=== PATIENT | female | born 2000 | race Caucasian/White ===

== ENCOUNTER → 2020-11-16 | Outpatient (REF) | payer OTHER | LOC: M WUC 09:35 | PROVIDERS: ATTEND Physician Assistant | DX: J06.9 Acute upper respiratory infection, unspecified (principal) ==

== ENCOUNTER 2021-07-25 10:35 | Emergency (ER) | payer OTHER ==
[~2021-07-25] VITALS: Ht 152.4 cm; Wt 81.8 kg
[2021-07-25] MEDS ORDERED: METH54TA2 (11:09)
[2021-07-25] MEDS ORDERED: PRENTAB53 (11:09)
[2021-07-25] MEDS ORDERED: LORA-674 (11:09)
[2021-07-25 12:05] LABS: BASO % 0.2 % (0.0-1.0); EOS # 0.1 10^3/uL (0.0-0.5); HEMATOCRIT 39.8 % (36.0-47.0); HEMOGLOBIN 13.5 g/dl (12.0-15.5); LYMPH # 3.2 10^3/uL (1.5-5.0); LYMPH % 25.6 % (24.0-44.0); MEAN CORPUSCULAR HEMOGLOBIN 30.7 pg (27.0-33.0); MEAN CORPUSCULAR HGB CONC 33.9 g/dl (32.0-36.5); MEAN CORPUSCULAR VOLUME 90.5 fl (80.0-96.0); MONO # 0.9 10^3/uL (0.0-0.8); MONO % 7.2 % (2.0-8.0); NEUTROPHILS # 8.2 10^3/uL (1.5-8.5); NEUTROPHILS % 65.4 % (36.0-66.0); PLATELET COUNT, AUTOMATED 306 10^3/uL (150-450); WHITE BLOOD COUNT 12.5 10^3/uL (4.0-10.0)
[2021-07-25 12:55] LABS: BLOOD UREA NITROGEN 8 MG/DL (7-18); CALCIUM LEVEL 9.1 MG/DL (8.5-10.1); CARBON DIOXIDE LEVEL 26 MEQ/L (21-32); CHLORIDE LEVEL 107 MEQ/L (98-107); CREATININE FOR GFR 0.61 MG/DL (0.55-1.30); GLOMERULAR FILTRATION RATE > 60.0 (>60); GLUCOSE, FASTING 105 MG/DL (70-100); HCG, SERUM QUANTITATIVE 90573 MIU/ML; POTASSIUM SERUM 3.7 MEQ/L (3.5-5.1); SODIUM LEVEL 138 MEQ/L (136-145)
[2021-07-25 14:57] VITALS: BP 134/92
[2021-07-25 15:54] LABS: GC DNA AMPLIFICATION NEGATIVE (NEGATIVE)
== END 2021-07-25 14:59 | disposition home or self-care (01) ==
LOC: M ED 10:35
DX: O26.851 Spotting complicating pregnancy, first trimester (principal); O20.8 Other hemorrhage in early pregnancy; O34.81 Maternal care for other abnormalities of pelvic organs, first trimester; O26.891 Other specified pregnancy related conditions, first trimester; R10.9 Unspecified abdominal pain; Z3A.01 Less than 8 weeks gestation of pregnancy; Z79.899 Other long term (current) drug therapy

== ENCOUNTER 2022-01-19 12:20 | Outpatient (CLI) | payer OTHER ==
[~2022-01-19] VITALS: Ht 152.4 cm; Wt 94.3 kg
[~2022-01-19 12:20] MED LIST: LORA-674; METH54TA2; PRENTAB53
[2022-01-19] MEDS ORDERED: TUMS500C PO (12:48)
[2022-01-19] MEDS ORDERED: HOME MED LIST COMPLETE! XX SCH (12:50)
[2022-01-19 12:56] VITALS: BP 133/74
[2022-01-19] MEDS ORDERED: FLUCONAZOLE 50MG TABLET PO ONE (14:00)
[2022-01-19 14:52] VITALS: BP 175/75
[2022-01-19 15:15] VITALS: BP 132/66
== END 2022-01-19 16:30 | disposition home or self-care (01) ==
LOC: M LDO 12:20
PROVIDERS: ATTEND Advanced Practice Midwife
DX: O23.593 Infection of other part of genital tract in pregnancy, third trimester (principal); Z3A.33 33 weeks gestation of pregnancy; O24.414 Gestational diabetes mellitus in pregnancy, insulin controlled
CPT/HCPCS: 59025; G0378; G0463

== ENCOUNTER 2022-02-15 19:25 | Outpatient (CLI) | payer OTHER ==
[~2022-02-15] VITALS: Ht 152.4 cm; Wt 94.5 kg
[~2022-02-15 19:25] MED LIST changes: +TUMS500C PO
[2022-02-15 19:55] VITALS: BP 116/71
== END 2022-02-15 21:00 | disposition home or self-care (01) ==
LOC: M LDO 19:25
PROVIDERS: ATTEND Obstetrics & Gynecology
DX: O60.03 Preterm labor without delivery, third trimester (principal); Z3A.36 36 weeks gestation of pregnancy
CPT/HCPCS: 59025; G0378; G0463

== ENCOUNTER 2022-02-18 17:06 | Outpatient (CLI) | payer OTHER ==
[~2022-02-18] VITALS: Ht 152.4 cm; Wt 95.1 kg
[2022-02-18 17:41] VITALS: BP 112/56
[2022-02-18] MEDS ORDERED: NOVO1INJ18 SC (17:52)
[2022-02-18 17:57] VITALS: BP 116/69
== END 2022-02-18 18:57 | disposition home or self-care (01) ==
LOC: M LDO 17:06
PROVIDERS: ATTEND Obstetrics & Gynecology
DX: O36.8130 Decreased fetal movements, third trimester, not applicable or unspecified (principal); Z3A.37 37 weeks gestation of pregnancy; O24.424 Gestational diabetes mellitus in childbirth, insulin controlled; O36.63X0 Maternal care for excessive fetal growth, third trimester, not applicable or unspecified
CPT/HCPCS: 59025; G0463

== ENCOUNTER 2022-02-20 17:35 | Outpatient (CLI) | payer OTHER ==
[~2022-02-20] VITALS: Ht 152.4 cm; Wt 94.8 kg
[~2022-02-20 17:35] MED LIST changes: +NOVO1INJ18 SC
[2022-02-20 18:02] VITALS: BP 123/79
== END 2022-02-20 18:45 | disposition home or self-care (01) ==
LOC: M LDO 17:35
PROVIDERS: ATTEND Obstetrics & Gynecology
DX: O47.1 False labor at or after 37 completed weeks of gestation (principal); Z3A.37 37 weeks gestation of pregnancy; O24.414 Gestational diabetes mellitus in pregnancy, insulin controlled
CPT/HCPCS: 59025; G0378; G0463

== ENCOUNTER 2022-02-25 21:22 | Outpatient (CLI) | payer OTHER ==
[~2022-02-25] VITALS: Ht 152.4 cm; Wt 94.9 kg
[2022-02-25] MEDS ORDERED: HOME MED LIST COMPLETE! XX SCH (21:35)
[2022-02-25 21:40] VITALS: BP 114/70
[2022-02-25 22:49] VITALS: BP 123/74
[2022-02-26 00:11] VITALS: BP 104/55
== END 2022-02-26 00:18 | disposition home or self-care (01) ==
LOC: M LDO 21:22
PROVIDERS: ATTEND Obstetrics & Gynecology
DX: O47.1 False labor at or after 37 completed weeks of gestation (principal); Z3A.38 38 weeks gestation of pregnancy; O24.414 Gestational diabetes mellitus in pregnancy, insulin controlled
CPT/HCPCS: 59025; G0463

== ENCOUNTER 2022-03-03 04:56 | Inpatient (IN) | payer OTHER ==
[2022-03-03] VITALS (8 sets, daily range): BP systolic 98–124; BP diastolic 56–77
[~2022-03-03] VITALS: Ht 152.4 cm; Wt 96.3 kg
[~2022-03-03 04:56] MED LIST changes: +INSU100I12 SC; -LORA-674; +LORA-674 PO; -PRENTAB53; +PRENTAB53 PO
[2022-03-03] MEDS ORDERED: HOME MED LIST COMPLETE! XX SCH (05:25)
[2022-03-03] MEDS ORDERED: LR 1,000 ML IV SCH (05:45)
[2022-03-03] MEDS ORDERED: LACTATED RINGER'S 1000 ML IV ONE (05:45)
[2022-03-03] MEDS ORDERED: ceFAZolin SOD 2 GM in IV 1 EA IV ONE (05:50)
[2022-03-03 05:56] LABS: HEMATOCRIT 39.2 % (36.0-47.0); HEMOGLOBIN 12.8 g/dl (12.0-15.5); MEAN CORPUSCULAR HEMOGLOBIN 28.6 pg (27.0-33.0); MEAN CORPUSCULAR HGB CONC 32.7 g/dl (32.0-36.5); MEAN CORPUSCULAR VOLUME 87.5 fl (80.0-96.0); PLATELET COUNT, AUTOMATED 240 10^3/uL (150-450); RED BLOOD COUNT 4.48 10^6/uL (4.00-5.40)
[2022-03-03] MEDS ORDERED: OXYTOCIN INJ 10UNITS/ML 1ML VIAL As Ordered ONE (07:16)
[2022-03-03] MEDS ORDERED: ONDANSETRON 4MG 2ML VIAL As Ordered ONE (07:16)
[2022-03-03] MEDS ORDERED: KETOROLAC 60MG 2ML VIAL As Ordered ONE (07:16)
[2022-03-03] MEDS ORDERED: fentaNYL 100 MCG/2 ML INJECTION As Ordered ONE (07:17)
[2022-03-03] MEDS ORDERED: MORPHINE PRES-FREE INJ 10 MG/10 ML VIAL As Ordered ONE (07:17)
[2022-03-03] MEDS ORDERED: BUPIVACAINE HCL 0.25% 10ML VIAL SC ONE (13:10)
[2022-03-03] MEDS ORDERED: PHENYLephrine 500MCG 5ML (100MCG/ML) SYRINGE As Ordered ONE (13:56)
[2022-03-03 13:58] LABS: CORD GAS ABE A -2.4; CORD GAS HCO3 A 24.5 MEQ/L; CORD GAS PCO2 A 50.2 mmHg; CORD GAS PH A 7.306 UNITS; CORD GAS PO2 A 21.9 mmHg; CORD GAS SBC A 21.2 MEQ/L
[2022-03-03 13:59] LABS: CORD GAS ABE V -3.3; CORD GAS HCO3 V 21.2 MEQ/L; CORD GAS O2 SAT V 75.6 %; CORD GAS PCO2 V 36.7 mmHg; CORD GAS PH V 7.379 UNITS; CORD GAS PO2 V 32.6 mmHg; CORD GAS SBC V 21.2 MEQ/L; CORD GAS TCO2 V 22.3 MEQ/L
[2022-03-03] MEDS ORDERED: METHYLERGONOVINE MALEATE 0.2 MG/ML VIAL (J2210) IM PRN (14:45)
[2022-03-03] MEDS ORDERED: RHOGAM 300MCG (1500IU) INJ IM SCH (14:45)
[2022-03-03] MEDS ORDERED: ONDANSETRON 4MG 2ML VIAL IV PRN ×2 (14:45→15:00)
[2022-03-03] MEDS ORDERED: oxyCODONE 5MG TAB PO PRN ×3 (14:45→15:00)
[2022-03-03] MEDS ORDERED: OXYTOCIN DRIP 30 UNITS in IV 1 EA IV SCH (14:45)
[2022-03-03] MEDS ORDERED: METOCLOPRAMIDE INJ 10MG/2ML VIAL IV PRN ×2 (14:45→15:00)
[2022-03-03] MEDS: LR 1,000 ML IV SCH ×3 (14:45→23:35)
[2022-03-03] MEDS ORDERED: SIMETHICONE 80MG CHEW TAB PO PRN (14:45)
[2022-03-03] MEDS ORDERED: HYDROMORPHONE HCL 0.5 MG/ 0.5 ML SYRINGE IV PRN (15:00)
[2022-03-03] MEDS ORDERED: **NOTE PATIENT COMMENT** MISC XX SCH (15:00)
[2022-03-03] MEDS ORDERED: NALOXONE INJ 0.4MG/1ML VIAL IV PRN ×2 (15:00)
[2022-03-03] MEDS ORDERED: MEPERIDINE INJ 25 MG/ML VIAL IV PRN (15:00)
[2022-03-03] MEDS ORDERED: fentaNYL 100 MCG/2 ML INJECTION IV PRN (15:00)
[2022-03-03] MEDS ORDERED: diphenhydrAMINE 50MG/ML VIAL IV PRN (15:00)
[2022-03-03] MEDS ORDERED: OXYTOCIN 30UNITS IN 0.9% NaCl 500ML IV BAG As Ordered ONE (15:04)
[2022-03-03] MEDS: SLF 3 ML SYR IV SCH ×2 (16:30→23:00)
[2022-03-03] MEDS: ACETAMINOPHEN 500 MG TAB PO SCH (18:11)
[2022-03-03] MEDS: KETOROLAC 30 MG/ML 1ML VIAL IV SCH (21:36)
[2022-03-03] MEDS: DOCUSATE SODIUM 100MG CAPSULE PO SCH (21:36)
[2022-03-03] MEDS ORDERED: LR 500 ML IV ONE (23:00)
[2022-03-04] MEDS: ACETAMINOPHEN 500 MG TAB PO SCH ×4 (00:28→18:13)
[2022-03-04 02:00] VITALS: BP 98/60
[2022-03-04] MEDS: KETOROLAC 30 MG/ML 1ML VIAL IV SCH ×2 (03:12→09:01)
[2022-03-04] MEDS: LR 1,000 ML IV SCH (04:17)
[2022-03-04] MEDS ORDERED: LR 500 ML IV ONE (04:55)
[2022-03-04 06:00] VITALS: BP 100/62
[2022-03-04] MEDS: SLF 3 ML SYR IV SCH (07:00)
[2022-03-04 07:09] LABS: MEAN CORPUSCULAR HEMOGLOBIN 28.2 pg (27.0-33.0); MEAN CORPUSCULAR HGB CONC 31.7 g/dl (32.0-36.5); PLATELET COUNT, AUTOMATED 170 10^3/uL (150-450); RED BLOOD COUNT 3.37 10^6/uL (4.00-5.40); WHITE BLOOD COUNT 10.8 10^3/uL (4.0-10.0)
[2022-03-04 07:10] LABS: HEMOGLOBIN 9.5 g/dl (12.0-15.5)
[2022-03-04] MEDS: METHYLPHENIDATE ER 18MG TABLET (CONCERTA) PO SCH (08:58)
[2022-03-04] MEDS: PRENATAL VITAMINS CHEWABLE TABLET PO SCH (08:58)
[2022-03-04] MEDS: DOCUSATE SODIUM 100MG CAPSULE PO SCH ×2 (09:00→21:14)
[2022-03-04 10:04] VITALS: BP 102/66
[2022-03-04] MEDS ORDERED: LORATADINE 10 MG TAB PO ONE (12:00)
[2022-03-04 14:00] VITALS: BP 101/56
[2022-03-04] MEDS: IBUPROFEN 800 MG TAB PO SCH (17:21)
[2022-03-04 18:00] VITALS: BP 112/64
[2022-03-04 22:00] VITALS: BP 111/67
[2022-03-05] MEDS: ACETAMINOPHEN 500 MG TAB PO SCH ×3 (00:02→12:16)
[2022-03-05] MEDS: IBUPROFEN 800 MG TAB PO SCH ×2 (01:13→08:27)
[2022-03-05 02:00] VITALS: BP 108/58
[2022-03-05 06:00] VITALS: BP 116/79
[2022-03-05] MEDS: PRENATAL VITAMINS CHEWABLE TABLET PO SCH (08:26)
[2022-03-05] MEDS: METHYLPHENIDATE ER 18MG TABLET (CONCERTA) PO SCH (08:26)
[2022-03-05] MEDS: DOCUSATE SODIUM 100MG CAPSULE PO SCH (08:27)
[2022-03-05] MEDS ORDERED: MEASLES,MUMPS,RUBELLA VACCINE INJ (MMR-II) SC.IMMUN ONE (09:00)
[2022-03-05] MEDS ORDERED: ACET-683 PO (10:03)
[2022-03-05] MEDS ORDERED: IBUP80TA PO (10:03)
== END 2022-03-05 13:00 | disposition home or self-care (01) | DRG 773 ==
LOC: M LDI 04:56 → M OBS 16:10
PROVIDERS: ADMIT Obstetrics & Gynecology; ATTEND Obstetrics & Gynecology
PROC: 10D00Z1 Extraction of Products of Conception, Low, Open Approach (ICD-10-PCS; principal; 2022-03-03)
DX: O36.63X0 Maternal care for excessive fetal growth, third trimester, not applicable or unspecified (principal); Z3A.39 39 weeks gestation of pregnancy; Z37.0 Single live birth; O24.429 Gestational diabetes mellitus in childbirth, unspecified control; O99.214 Obesity complicating childbirth; E66.9 Obesity, unspecified